=== PATIENT | male | born 1970 | race Caucasian/White ===

== ENCOUNTER 2018-12-02 01:48 | Inpatient (IN) | payer OTHER ==
[2018-12-02] MEDS ORDERED: ACETAMINOPHEN 325 MG TAB PO (05:00)
[2018-12-02] MEDS ORDERED: ONDANSETRON 4 MG INJ IV (05:00)
[2018-12-02] MEDS: DEXTROSE 5%-0.9% NACL 1,000 ML IV ×3 (05:24→22:01)
[2018-12-02] MEDS: morphine 4 MG/ML VIAL IV ×5 (05:24→21:58)
[2018-12-02] MEDS: metroNIDAZOLE 500 MG/NS (PMX) 100 ML IVPB ×3 (05:27→21:58)
[2018-12-02] MEDS: PANTOPRAZOLE 40 MG INJ IV (05:29)
[2018-12-02] MEDS: PIPER-TAZO 3.375 GM IV (PMX) 100 ML IVPB ×3 (06:54→17:40)
[2018-12-02 11:34] LABS: ADD MAN DIFF? NO
[2018-12-02 11:35] LABS: BASOPHIL # 0.1 10^3/ul (0.0-0.1); BASOPHILS % 0.6 % (0.0-2.0); EOSINOPHILS # 0.1 10^3/ul (0.0-0.5); EOSINOPHILS % 1.1 % (0.0-7.0); HEMATOCRIT 38.3 % (42.0-52.0); LYMPHOCYTES # 0.9 10^3/ul (0.8-2.9); LYMPHOCYTES % 8.8 % (15.0-51.0); MEAN CORPUSCULAR HEMOGLOBIN 32.6 pg (29.0-33.0); MEAN CORPUSCULAR HGB CONC 33.9 g/dl (32.0-37.0); MEAN PLATELET VOLUME 10.4 fl (7.4-10.4); MONOCYTES % 9.8 % (0.0-11.0); NEUTROPHIL # 7.7 10^3/ul (1.6-7.5); NEUTROPHILS % 79.3 % (39.0-77.0); PLATELET COUNT 173 10^3/UL (140-415); RED BLOOD COUNT 3.99 10^6/ul (4.70-6.10); RED CELL DISTRIBUTION WIDTH 12.7 % (11.5-14.5)
[2018-12-02 11:35] LABS: WHITE BLOOD COUNT 9.7 10^3/ul (4.8-10.8)
[2018-12-02 12:01] LABS: ALANINE AMINOTRANSFERASE 40 IU/L (13-69); ALBUMIN 3.4 g/dl (3.3-4.9); ALBUMIN/GLOBULIN RATIO 1.06; ALKALINE PHOSPHATASE 71 IU/L (42-121); ANION GAP 6 (5-13); ASPARTATE AMINO TRANSFERASE 32 IU/L (15-46); BILIRUBIN,INDIRECT 0.7 mg/dl (0-1.1); BILIRUBIN,TOTAL 0.7 mg/dl (0.2-1.3); BLOOD UREA NITROGEN 15 mg/dl (7-20); CALCIUM 7.8 mg/dl (8.4-10.2); CARBON DIOXIDE 27 mmol/L (21-31); CHLORIDE 108 mmol/L (97-110); Estimated GFR > 60 mL/min (>60); GLUCOSE 111 mg/dl (70-220); POTASSIUM 3.8 mmol/L (3.5-5.1); SODIUM 141 mmol/L (135-144); TOTAL PROTEIN 6.6 g/dl (6.1-8.1)
[2018-12-02 16:59] LABS: ADD UMIC YES; UR ASCORBIC ACID NEGATIVE (NEGATIVE); UR BACTERIA FEW /HPF (NONE SEEN); UR BILIRUBIN (Dip) NEGATIVE (NEGATIVE); UR BLOOD (Dip) 2+ mg/dL (NEGATIVE); UR CLARITY CLOUDY (CLEAR); UR COLOR YELLOW (YELLOW); UR GLUCOSE (Dip) NEGATIVE (NEGATIVE); UR KETONES (Dip) TRACE mg/dL (NEGATIVE); UR LEUKOCYTE ESTERASE (Dip) 3+ Leu/ul (NEGATIVE); UR NITRITE (Dip) NEGATIVE (NEGATIVE); UR RBC 36 /HPF (0-5); UR SPECIFIC GRAVITY (Dip) 1.024 (1.003-1.030); UR TOTAL PROTEIN (Dip) 1+ mg/dl (NEGATIVE); UR UROBILINOGEN (Dip) NEGATIVE (NEGATIVE); UR WBC > 182 /HPF (0-5)
[2018-12-03] MEDS: PIPER-TAZO 3.375 GM IV (PMX) 100 ML IVPB ×4 (00:02→17:38)
[2018-12-03 04:59] LABS: ADD MAN DIFF? NO
[2018-12-03 05:04] LABS: WHITE BLOOD COUNT 6.8 10^3/ul (4.8-10.8)
[2018-12-03 05:04] LABS: BASOPHILS % 0.6 % (0.0-2.0); EOSINOPHILS # 0.2 10^3/ul (0.0-0.5); EOSINOPHILS % 2.5 % (0.0-7.0); HEMATOCRIT 36.4 % (42.0-52.0); HEMOGLOBIN 12.3 g/dl (14.0-18.0); LYMPHOCYTES # 1.2 10^3/ul (0.8-2.9); LYMPHOCYTES % 17.6 % (15.0-51.0); MEAN CORPUSCULAR HEMOGLOBIN 32.3 pg (29.0-33.0); MEAN CORPUSCULAR HGB CONC 33.8 g/dl (32.0-37.0); MEAN CORPUSCULAR VOLUME 95.5 fl (82.0-101.0); MEAN PLATELET VOLUME 10.4 fl (7.4-10.4); MONOCYTES % 14.1 % (0.0-11.0); NEUTROPHIL # 4.4 10^3/ul (1.6-7.5); NEUTROPHILS % 64.9 % (39.0-77.0); PLATELET COUNT 194 10^3/UL (140-415); RED BLOOD COUNT 3.81 10^6/ul (4.70-6.10); RED CELL DISTRIBUTION WIDTH 12.8 % (11.5-14.5)
[2018-12-03 05:25] LABS: PHOSPHORUS 2.3 mg/dl (2.5-4.9)
[2018-12-03 05:25] LABS: MAGNESIUM 1.8 mg/dl (1.7-2.5)
[2018-12-03 05:38] LABS: ALANINE AMINOTRANSFERASE 33 IU/L (13-69); ALBUMIN 3.1 g/dl (3.3-4.9); ALBUMIN/GLOBULIN RATIO 1.03; ALKALINE PHOSPHATASE 64 IU/L (42-121); ANION GAP 7 (5-13); ASPARTATE AMINO TRANSFERASE 28 IU/L (15-46); BILIRUBIN,INDIRECT 0.5 mg/dl (0-1.1); BILIRUBIN,TOTAL 0.5 mg/dl (0.2-1.3); BLOOD UREA NITROGEN 10 mg/dl (7-20); CALCIUM 7.8 mg/dl (8.4-10.2); CARBON DIOXIDE 27 mmol/L (21-31); CHLORIDE 109 mmol/L (97-110); CREATININE 0.87 mg/dl (0.61-1.24); Estimated GFR > 60 mL/min (>60); GLUCOSE 110 mg/dl (70-220); POTASSIUM 3.4 mmol/L (3.5-5.1); SODIUM 143 mmol/L (135-144); TOTAL PROTEIN 6.1 g/dl (6.1-8.1)
[2018-12-03] MEDS: PANTOPRAZOLE 40 MG INJ IV (05:44)
[2018-12-03] MEDS: metroNIDAZOLE 500 MG/NS (PMX) 100 ML IVPB ×3 (05:45→21:51)
[2018-12-03] MEDS: morphine 4 MG/ML VIAL IV ×3 (11:28→19:49)
[2018-12-03] MEDS: POTASSIUM PHOSPHATE 20 MEQ in SOD CHLORIDE 0.9% 250 ML IVPB (12:05)
[2018-12-03] MEDS: FAT EMULSION 20% 250 ML IV (13:58)
[2018-12-03] MEDS: DEXTROSE 5%-0.9% NACL 1,000 ML IV (17:41)
[2018-12-04] MEDS: morphine 4 MG/ML VIAL IV ×5 (00:22→22:45)
[2018-12-04] MEDS: PIPER-TAZO 3.375 GM IV (PMX) 100 ML IVPB ×5 (00:23→22:53)
[2018-12-04] MEDS: metroNIDAZOLE 500 MG/NS (PMX) 100 ML IVPB ×3 (05:03→20:25)
[2018-12-04] MEDS: PANTOPRAZOLE 40 MG INJ IV (05:04)
[2018-12-04 05:38] LABS: PHOSPHORUS 3.1 mg/dl (2.5-4.9)
[2018-12-04 05:38] LABS: MAGNESIUM 1.8 mg/dl (1.7-2.5)
[2018-12-04 05:39] LABS: ANION GAP 4 (5-13); BLOOD UREA NITROGEN 8 mg/dl (7-20); CALCIUM 8.2 mg/dl (8.4-10.2); CARBON DIOXIDE 29 mmol/L (21-31); CHLORIDE 107 mmol/L (97-110); CREATININE 0.84 mg/dl (0.61-1.24); Estimated GFR > 60 mL/min (>60); GLUCOSE 107 mg/dl (70-220); POTASSIUM 3.5 mmol/L (3.5-5.1); SODIUM 140 mmol/L (135-144)
[2018-12-04] MEDS: DEXTROSE 5%-0.9% NACL 1,000 ML IV ×2 (08:46→20:28)
[2018-12-04] MEDS ORDERED: IOHEXOL 14.3 MG(I)/ML (ADULT) BTL PO (12:30)
[2018-12-04] MEDS: FAT EMULSION 20% 250 ML IV (13:10)
[2018-12-05 04:59] LABS: ADD MAN DIFF? NO
[2018-12-05 05:04] LABS: BASOPHIL # 0.1 10^3/ul (0.0-0.1); BASOPHILS % 0.8 % (0.0-2.0); EOSINOPHILS # 0.2 10^3/ul (0.0-0.5); EOSINOPHILS % 3.5 % (0.0-7.0); HEMATOCRIT 38.4 % (42.0-52.0); HEMOGLOBIN 12.9 g/dl (14.0-18.0); LYMPHOCYTES # 1.9 10^3/ul (0.8-2.9); LYMPHOCYTES % 30.3 % (15.0-51.0); MEAN CORPUSCULAR HEMOGLOBIN 31.9 pg (29.0-33.0); MEAN CORPUSCULAR HGB CONC 33.6 g/dl (32.0-37.0); MEAN CORPUSCULAR VOLUME 94.8 fl (82.0-101.0); MEAN PLATELET VOLUME 10.5 fl (7.4-10.4); MONOCYTE # 0.6 10^3/ul (0.3-0.9); MONOCYTES % 9.7 % (0.0-11.0); NEUTROPHIL # 3.4 10^3/ul (1.6-7.5); NEUTROPHILS % 54.7 % (39.0-77.0); PLATELET COUNT 253 10^3/UL (140-415); RED BLOOD COUNT 4.05 10^6/ul (4.70-6.10); RED CELL DISTRIBUTION WIDTH 12.3 % (11.5-14.5)
[2018-12-05 05:04] LABS: WHITE BLOOD COUNT 6.2 10^3/ul (4.8-10.8)
[2018-12-05] MEDS: PIPER-TAZO 3.375 GM IV (PMX) 100 ML IVPB ×4 (05:07→23:56)
[2018-12-05] MEDS: PANTOPRAZOLE 40 MG INJ IV (05:08)
[2018-12-05] MEDS: metroNIDAZOLE 500 MG/NS (PMX) 100 ML IVPB ×3 (05:08→21:22)
[2018-12-05 05:22] LABS: ALANINE AMINOTRANSFERASE 36 IU/L (13-69); ALBUMIN 3.2 g/dl (3.3-4.9); ALBUMIN/GLOBULIN RATIO 1.03; ALKALINE PHOSPHATASE 60 IU/L (42-121); ANION GAP 5 (5-13); ASPARTATE AMINO TRANSFERASE 37 IU/L (15-46); BILIRUBIN,INDIRECT 0.4 mg/dl (0-1.1); BILIRUBIN,TOTAL 0.4 mg/dl (0.2-1.3); BLOOD UREA NITROGEN 5 mg/dl (7-20); CALCIUM 8.5 mg/dl (8.4-10.2); CARBON DIOXIDE 30 mmol/L (21-31); CHLORIDE 106 mmol/L (97-110); CREATININE 0.82 mg/dl (0.61-1.24); Estimated GFR > 60 mL/min (>60); GLUCOSE 100 mg/dl (70-220); POTASSIUM 3.4 mmol/L (3.5-5.1); SODIUM 141 mmol/L (135-144); TOTAL PROTEIN 6.3 g/dl (6.1-8.1)
[2018-12-05 05:40] LABS: PHOSPHORUS 3.2 mg/dl (2.5-4.9)
[2018-12-05 05:40] LABS: MAGNESIUM 1.7 mg/dl (1.7-2.5)
[2018-12-05] MEDS: POTASSIUM CHLORIDE (SR) 20 MEQ TAB PO (08:47)
[2018-12-05] MEDS: morphine 2 MG INJ IV ×2 (10:34→19:14)
[2018-12-05] MEDS: morphine 4 MG/ML VIAL IV (23:56)
[2018-12-06] MEDS: metroNIDAZOLE 500 MG/NS (PMX) 100 ML IVPB ×2 (05:18→14:00)
[2018-12-06] MEDS: PIPER-TAZO 3.375 GM IV (PMX) 100 ML IVPB ×2 (05:18→12:36)
[2018-12-06] MEDS: PANTOPRAZOLE 40 MG INJ IV (05:19)
[2018-12-06 05:48] LABS: ANION GAP 3 (5-13); BLOOD UREA NITROGEN 6 mg/dl (7-20); CALCIUM 9.2 mg/dl (8.4-10.2); CARBON DIOXIDE 31 mmol/L (21-31); CHLORIDE 106 mmol/L (97-110); CREATININE 0.89 mg/dl (0.61-1.24); Estimated GFR > 60 mL/min (>60); GLUCOSE 93 mg/dl (70-220); POTASSIUM 4.3 mmol/L (3.5-5.1); SODIUM 140 mmol/L (135-144)
== END 2018-12-06 15:56 | disposition home or self-care (01) | DRG 392 ==
LOC: MS1 01:48
DX: K57.32 Diverticulitis of large intestine without perforation or abscess without bleeding (principal); N32.1 Vesicointestinal fistula; N12 Tubulo-interstitial nephritis, not specified as acute or chronic; E66.3 Overweight; E87.6 Hypokalemia; Z68.27 Body mass index [BMI] 27.0-27.9, adult; Z87.442 Personal history of urinary calculi
CPT/HCPCS: 80048; 80053; 81001; 83735; 84100; 85025; 87086